=== PATIENT | male | born 1975 | race African-American/Black ===

== ENCOUNTER 2022-10-04 11:39 | Emergency (ER) | payer MEDICAID ==
[~2022-10-04] VITALS: Ht 167.6 cm; Wt 75.0 kg
[2022-10-04 11:42] VITALS: BP 110/73
[2022-10-04] MEDS ORDERED: AMOX1TAB16 MT (13:37)
[2022-10-04] MEDS ORDERED: ALBU6.7H3 INH (13:37)
[2022-10-04] MEDS ORDERED: MUPI15CR11 TP (13:37)
[2022-10-04] MEDS ORDERED: AZIT500T8 MT (13:37)
== END 2022-10-04 14:10 | disposition home or self-care (01) ==
LOC: ER 12:37
DX: L03.113 Cellulitis of right upper limb (principal); F17.200 Nicotine dependence, unspecified, uncomplicated; F12.10 Cannabis abuse, uncomplicated
CPT/HCPCS: 71046; 73080; 93005; 99284